=== PATIENT | female | born 1975 | race Asian ===

== ENCOUNTER 2018-01-21 07:52 | Emergency (ER) | payer OTHER ==
[2018-01-21 07:58] VITALS: Ht 160 cm
[2018-01-21 09:08] VITALS: BP 114/72
== END 2018-01-21 09:08 | disposition home or self-care (01) ==
LOC: ED 07:52
DX: G44.209 Tension-type headache, unspecified, not intractable (principal)
CPT/HCPCS: J1885

== ENCOUNTER 2018-08-05 20:24 | Emergency (ER) | payer OTHER ==
[~2018-08-05] VITALS: Ht 160 cm; Wt 58.1 kg
[2018-08-05 20:57] VITALS: Ht 160 cm; Wt 58.1 kg
[2018-08-05 23:11] VITALS: BP 110/67
== END 2018-08-05 23:11 | disposition home or self-care (01) ==
LOC: ED 20:24
DX: S63.501A Unspecified sprain of right wrist, initial encounter (principal); W18.39XA Other fall on same level, initial encounter; Y93.89 Activity, other specified; Y92.89 Other specified places as the place of occurrence of the external cause; Y99.8 Other external cause status